=== PATIENT | male | born 1965 | race African-American/Black ===

== ENCOUNTER 2016-07-19 10:21 | Emergency (ER) | payer MEDICAID ==
[~2016-07-19] VITALS: Ht 190.5 cm; Wt 95.2 kg
[2016-07-19 10:28] VITALS: BP 144/89
[2016-07-19] MEDS ORDERED: OXYC5CAP4 PO (10:49)
== END 2016-07-19 11:43 | disposition home or self-care (01) ==
LOC: ED 10:48
DX: L02.415 Cutaneous abscess of right lower limb (principal)
CPT/HCPCS: 10060

== ENCOUNTER 2018-05-01 18:13 | Emergency (ER) | payer MEDICAID ==
[~2018-05-01] VITALS: Ht 190.5 cm; Wt 80.9 kg
[~2018-05-01 18:13] MED LIST: OXYC5CAP2 PO
[2018-05-01 18:19] VITALS: BP 176/95
== END 2018-05-01 19:25 | disposition home or self-care (01) ==
LOC: ED 19:19
DX: L03.011 Cellulitis of right finger (principal); L03.012 Cellulitis of left finger; B35.3 Tinea pedis; F17.210 Nicotine dependence, cigarettes, uncomplicated
CPT/HCPCS: 99283

== ENCOUNTER 2018-05-29 13:11 | Emergency (ER) | payer MEDICAID ==
[~2018-05-29] VITALS: Ht 190.5 cm; Wt 82.5 kg
[2018-05-29 13:46] VITALS: BP 166/103
--- NOTE | 2018-05-29 14:35 | NUR ---
Patient/Caregiver given discharge instructions and they have confirmed that they understand the instructions. Patient ambulatory with steady gait.
== END 2018-05-29 14:36 | disposition home or self-care (01) ==
LOC: ED 14:07
DX: L20.89 Other atopic dermatitis (principal); F17.200 Nicotine dependence, unspecified, uncomplicated
CPT/HCPCS: 99283

== ENCOUNTER 2018-07-30 10:27 | Inpatient (IN) | payer MEDICAID ==
[~2018-07-30] VITALS: Ht 190.5 cm; Wt 85.0 kg
--- NOTE | 2018-07-30 10:57 | NUR ---
BIB BY [facility] FOR COUGH/SOB CHILLS/FATIGUE/GENERALIZED ABD PAIN X 1 MONTH. [facility] REPORTS INITIAL HR 130- PIV PLACED AND GIVEN 1300ML ON ARRIVAL TREMULOUS/CHILLED/HR 125. TEMP 102.3. B/P 140/81 DENIES ILLICITS/ "ONE BEER YESTERDAY" MILD DIAPHORESIS, COURSE LUNG SOUNDS. PRODUCTIVE COUGH PLACED ON SOFTWARE INTEGRATOR- REMAINING 700ML OF EMS SALINE CURRENTLY INFUSING UPDATED ON POC PROVIDED WITH MULTIPLE BLANKETS/KRISTIAN HUGGER
--- NOTE | 2018-07-30 11:05 | NUR ---
PROVIDER TO BEDSIDE-PLAN TO ADMINISTER TYLENOL-START SEPSIS WORKUP
[2018-07-30] MEDS ORDERED: ACETAMINOPHEN 500 MG TABLET ONE (11:07)
--- NOTE | 2018-07-30 11:09 | NUR ---
MEDICATED FOR FEVER WITH 1GM OF APAP PER EMAR
[2018-07-30] MEDS ORDERED: ONDANSETRON 2MG/ML, 2ML ONE (11:21)
--- NOTE | 2018-07-30 11:29 | NUR ---
SCREEN MACHINE OPERATOR OBTAINED LABS INCLUDING LACTATE AND STERILE CULTURES FROM LEFT AC AND THEN RIGHT HAND. ADDITIONAL 18GA PLACED TO LEFT AC PATIENT THEN NAUSEATED-MEDICATED W/ 4MG ZOFRAN LITER BOLUS ADMINISTERED/AND ABX WELL PATIENT VOIDED 300ML-SAMPLE SENT VITALS REMAIN UNCHANGED
[2018-07-30] MEDS ORDERED: ACETAMINOPHEN 500 MG TABLET PO ONE (11:30)
[2018-07-30] MEDS ORDERED: CEFTRIAXONE PMX 1GM/50ML 50 ML IVPB ONE (11:30)
[2018-07-30] MEDS ORDERED: SODIUM CHLORIDE 0.9% 1,000ML IVBOLUS ONE (11:30)
--- NOTE | 2018-07-30 11:39 | NUR ---
PATIENT NOW 98.3-PROVIDED WITH BLANKETS REPORTS NAUSEA IMPROVED WITH VOIDING PATIENT REMINDED THAT HE HAS POLYURIA/RETENTION/BURNING W/ VOIDING-PROVIDER MADE AWAR & URINE SAMPLE IN LAB
[2018-07-30] MEDS ORDERED: CEFTRIAXONE PMX 1GM/50ML 50 ML ONE (11:43)
--- NOTE | 2018-07-30 11:49 | NUR ---
1 L NS COMPLETE/ROCEPHIN COMPLETE VITAL UNCHANGED ON SHOE SALESPERSON WILL CONTINUE TO CLOSELY MONITOR
[2018-07-30 11:50] LABS: CULTURE INDICATED? NO; MICROSCOPIC NOT IND
[2018-07-30 11:54] LABS: ALBUMIN 3.5 g/dL (3.4-5.0); ANION GAP 6 mmol/L (5-15); CALCIUM 8.9 mg/dL (8.5-10.1); CHLORIDE 105 mmol/L (98-107)
[2018-07-30 11:57] LABS: ALANINE AMINOTRANSFERASE 29 U/L (12-78); ALKALINE PHOSPHATASE 163 U/L (45-117); BILIRUBIN,TOTAL 0.8 mg/dL (0.2-1.0); CREATININE 1.02 mg/dL (0.7-1.3); TOTAL PROTEIN 7.6 g/dL (6.4-8.2)
[2018-07-30] MEDS ORDERED: ONDANSETRON 2MG/ML, 2ML IVPush ONE (12:00)
[2018-07-30 12:01] LABS: BASOPHILS # (AUTO) 0.02 x10^3/uL (0-0.1); BASOPHILS % (AUTO) 0 % (0-1); EOSINOPHILS # (AUTO) 0.06 x10^3/uL (0-0.4); EOSINOPHILS % (AUTO) 1 % (1-7); LYMPHOCYTES # (AUTO) 0.44 x10^3/uL (1-3.4); LYMPHOCYTES % (AUTO) 5 % (22-44); MD NO; MEAN CORPUSCULAR HEMOGLOBIN 28.5 pg (27.5-34.5); MEAN CORPUSCULAR HGB CONC 31.9 g/dL (33.2-36.2); MEAN CORPUSCULAR VOLUME 89.3 fL (81-97); MEAN PLATELET VOLUME 8.8 fL (7.4-10.4); MONOCYTES # (AUTO) 0.06 x10^3/uL (0.2-0.8); MONOCYTES % (AUTO) 1 % (2-9); NEUTROPHILS # (AUTO) 8.59 x10^3/uL (1.8-6.8); NEUTROPHILS % (AUTO) 94 % (42-75); PLATELET COUNT 191 x10^3/uL (130-400); RED BLOOD COUNT 4.82 x10^6/uL (4.38-5.82); RED CELL DISTRIBUTION WIDTH 13.6 % (9.4-14.8)
--- NOTE | 2018-07-30 12:45 | NUR ---
PATIENT RESTUING COMFORTABLY-NO COMPLAINTS STILL REQUIRING 3L NC VITALS UNCHANGED ON MONITOR UPDATED ON POC (PENDING ADMIT) CALL VALENTIN IN HAND
[2018-07-30] MEDS ORDERED: OMNIPAQUE 350 MG/ML, 100ML BOTTLE ONE (12:46)
--- NOTE | 2018-07-30 14:08 | NUR ---
PATIENT RESTING COMFORTABLY-NO COMPLAINTS OXYGEN WEANED TO 2L NC-NO DIFFICULTY VITALS UNCHANGED ON MONITOR CALL VALENTIN IN HAND/SIDE RAILS UP FAMILY AT BEDSIDE PROVIDED WITH MORE PO FLUIDS-TOLERATING W/OUT DIFFICULTY
--- NOTE | 2018-07-30 14:41 | NUR ---
PATIENT RESTING COMFORTABLY-NO COMPLAINTS OXYGEN WEANED TO 1L NC-NO DIFFICULTY HR DOWN TO 109 ON BREEDING MANAGER CALL VALENTIN IN HAND/SIDE RAILS UP FAMILY AT BEDSIDE PROVIDED WITH MORE PO FLUIDS-TOLERATING W/OUT DIFFICULTY
[2018-07-30] MEDS ORDERED: ACETAMINOPHEN 325 MG TABLET PO PRN (15:00)
[2018-07-30] MEDS ORDERED: hydrALAzine 20 MG/ML, 1ML IVPush PRN (15:00)
[2018-07-30] MEDS ORDERED: ONDANSETRON 2MG/ML, 2ML IVPush PRN (15:00)
[2018-07-30] MEDS ORDERED: DOCUSATE 100 MG CAPSULE PO PRN (15:00)
[2018-07-30] MEDS ORDERED: CYCLOBENZAPRINE 10 MG TABLET PO PRN (15:00)
[2018-07-30] MEDS: CIPROFLOXACIN/PMX 400MG/200ML 200 ML IV SCH (15:00)
[2018-07-30] MEDS ORDERED: NITROGLYCERIN 0.4 MG BOTTLE (25 TABS) SL PRN (15:00)
[2018-07-30] MEDS: ENOXAPARIN 40 MG/0.4 ML SQ SCH (15:00)
[2018-07-30] MEDS ORDERED: morphine SULFATE 10 MG/ML, 1ML IVPush PRN (15:00)
[2018-07-30] MEDS ORDERED: OXYcodone IR 5MG TABLET PO PRN (15:00)
--- NOTE | 2018-07-30 15:20 | NUR ---
REPORT TO RONEY GURROLA FOR [facility] RONEY MADE AWARE THAT HOSPITALIST SWITCHED ADMIT FOR SURGICAL TO TELE. DR. DEMPSEY MADE AWARE THAT HR NOW 86-HOWEVER DR. DEMPSEY PREFERS HE BEEN ADMITTED TO TELE BASED ON PRIOR TACHYCARDIA
[2018-07-30] MEDS ORDERED: TETR-16 PO (16:02)
[2018-07-30 16:25] LABS: C-REACTIVE PROTEIN, QUANT 0.53 mg/dL (0.02-0.49)
[2018-07-30 16:29] LABS: PSA SCREEN 9.44 ng/mL (0.00-4.00)
[2018-07-30 17:42] LABS: HCT (SEDRATE) 43.1 % (39.2-51.8)
[2018-07-30] MEDS: D5%-LACTATED RINGERS 1,000 ML IV SCH (19:02)
[2018-07-30 19:53] VITALS: BP 117/66
[2018-07-30] MEDS: TAMSULOSIN 0.4 MG CAP.ER.24H PO SCH (22:05)
[2018-07-30] MEDS: METRONIDAZOLE PMX 500MG/100ML 100 ML IV SCH (22:06)
[2018-07-31] MEDS: D5%-LACTATED RINGERS 1,000 ML IV SCH ×4 (01:14→23:00)
[2018-07-31 02:20] VITALS: BP 122/67
[2018-07-31] MEDS: CIPROFLOXACIN/PMX 400MG/200ML 200 ML IV SCH ×2 (03:00→16:53)
[2018-07-31 04:24] LABS: AMPHETAMINE SCREEN, URINE Positive (Negative); BARBITURATE SCREEN, URINE Negative (Negative); BENZODIAZEPINE SCREEN, URINE Negative (Negative); CANNABINOID SCREEN, URINE Negative (Negative); COCAINE SCREEN, URINE Negative (Negative); METHADONE SCREEN, URINE Negative (Negative); OPIATE SCREEN, URINE Negative (Negative)
[2018-07-31] MEDS: METRONIDAZOLE PMX 500MG/100ML 100 ML IV SCH ×3 (05:41→22:56)
[2018-07-31 06:53] LABS: MEAN CORPUSCULAR HEMOGLOBIN 28.8 pg (27.5-34.5); MEAN CORPUSCULAR HGB CONC 32.4 g/dL (33.2-36.2); MEAN PLATELET VOLUME 8.8 fL (7.4-10.4); PLATELET COUNT 164 x10^3/uL (130-400); RED BLOOD COUNT 3.97 x10^6/uL (4.38-5.82); RED CELL DISTRIBUTION WIDTH 13.6 % (9.4-14.8)
[2018-07-31 07:06] LABS: ANION GAP 7 mmol/L (5-15); CALCIUM 8.1 mg/dL (8.5-10.1); CHLORIDE 106 mmol/L (98-107)
[2018-07-31 07:08] LABS: CREATININE 0.82 mg/dL (0.7-1.3)
[2018-07-31 07:13] LABS: BASOPHILS # (AUTO) 0.03 x10^3/uL (0-0.1); BASOPHILS % (AUTO) 1 % (0-1); EOSINOPHILS % (AUTO) 6 % (1-7); LYMPHOCYTES # (AUTO) 1.48 x10^3/uL (1-3.4); LYMPHOCYTES % (AUTO) 28 % (22-44); MD SCAN; MONOCYTES # (AUTO) 0.64 x10^3/uL (0.2-0.8); MONOCYTES % (AUTO) 12 % (2-9); NEUTROPHILS # (AUTO) 2.87 x10^3/uL (1.8-6.8); NEUTROPHILS % (AUTO) 54 % (42-75)
[2018-07-31 08:00] VITALS: BP 119/75
[2018-07-31 13:55] VITALS: BP 119/68
[2018-07-31] MEDS: ENOXAPARIN 40 MG/0.4 ML SQ SCH (16:54)
[2018-07-31 18:56] VITALS: BP 134/69
[2018-07-31] MEDS: TAMSULOSIN 0.4 MG CAP.ER.24H PO SCH (21:21)
[2018-07-31 21:30] LABS: OCCULT BLOOD NEGATIVE (NEGATIVE)
[2018-07-31 22:40] LABS: STOOL FOR LEUKOCYTES NONE SEEN (NEGATIVE)
[2018-08-01 01:56] VITALS: BP 153/80
[2018-08-01] MEDS: CIPROFLOXACIN/PMX 400MG/200ML 200 ML IV SCH ×2 (03:17→15:24)
[2018-08-01 05:15] LABS: BASOPHILS # (AUTO) 0.01 x10^3/uL (0-0.1); BASOPHILS % (AUTO) 0 % (0-1); EOSINOPHILS # (AUTO) 0.22 x10^3/uL (0-0.4); EOSINOPHILS % (AUTO) 5 % (1-7); LYMPHOCYTES # (AUTO) 1.93 x10^3/uL (1-3.4); LYMPHOCYTES % (AUTO) 40 % (22-44); MD NO; MEAN CORPUSCULAR HEMOGLOBIN 28.9 pg (27.5-34.5); MEAN CORPUSCULAR HGB CONC 32.6 g/dL (33.2-36.2); MEAN CORPUSCULAR VOLUME 88.9 fL (81-97); MEAN PLATELET VOLUME 9.4 fL (7.4-10.4); MONOCYTES # (AUTO) 0.74 x10^3/uL (0.2-0.8); MONOCYTES % (AUTO) 15 % (2-9); NEUTROPHILS # (AUTO) 1.94 x10^3/uL (1.8-6.8); NEUTROPHILS % (AUTO) 40 % (42-75); PLATELET COUNT 182 x10^3/uL (130-400); RED CELL DISTRIBUTION WIDTH 13.2 % (9.4-14.8)
[2018-08-01 05:19] LABS: CHLORIDE 108 mmol/L (98-107)
[2018-08-01 05:29] LABS: ANION GAP 7 mmol/L (5-15); CALCIUM 8.7 mg/dL (8.5-10.1); CREATININE 0.62 mg/dL (0.7-1.3)
[2018-08-01] MEDS: D5%-LACTATED RINGERS 1,000 ML IV SCH (05:37)
[2018-08-01] MEDS: METRONIDAZOLE PMX 500MG/100ML 100 ML IV SCH ×3 (05:37→21:44)
[2018-08-01 08:02] VITALS: BP 130/78
[2018-08-01] MEDS: ENOXAPARIN 40 MG/0.4 ML SQ SCH (15:24)
[2018-08-01 16:11] VITALS: BP 112/74
[2018-08-01 18:56] VITALS: BP 146/82
[2018-08-01] MEDS: TAMSULOSIN 0.4 MG CAP.ER.24H PO SCH (21:37)
[2018-08-02 00:55] VITALS: BP 142/84
[2018-08-02] MEDS: CIPROFLOXACIN/PMX 400MG/200ML 200 ML IV SCH (02:32)
[2018-08-02] MEDS: METRONIDAZOLE PMX 500MG/100ML 100 ML IV SCH (06:30)
[2018-08-02 07:05] VITALS: BP 135/84
[2018-08-02] MEDS ORDERED: TAMS-11 PO (12:06)
[2018-08-02] MEDS ORDERED: ACET325T14 PO (12:06)
== END 2018-08-02 13:50 | disposition home or self-care (01) | DRG 872 ==
LOC: ED 12:02 → EDIP 15:00 → 4WST 16:45
PROVIDERS: ADMIT Internal Medicine; ATTEND Internal Medicine
DX: A41.9 Sepsis, unspecified organism (principal); K50.90 Crohn's disease, unspecified, without complications; E83.39 Other disorders of phosphorus metabolism; E86.0 Dehydration; F15.90 Other stimulant use, unspecified, uncomplicated; Z96.642 Presence of left artificial hip joint; F17.210 Nicotine dependence, cigarettes, uncomplicated; N40.0 Benign prostatic hyperplasia without lower urinary tract symptoms; Z80.42 Family history of malignant neoplasm of prostate; Z83.3 Family history of diabetes mellitus
CPT/HCPCS: 36415; 82438; 84302; 84999; 87046; 99285; J7121; 71045; 74177; 80048; 80053; 80307; 81003; 82272; 83605; 83735; 84100; 85025; 85651; 86140; 87040; 89055; 93005; 96374; 96375; G0103; G0378; J0696; J0744; J1650; J2405; Q9967; J7030

== ENCOUNTER 2019-06-23 22:50 | Emergency (ER) | payer MEDICAID ==
[~2019-06-23] VITALS: Ht 190.5 cm; Wt 82.2 kg
[~2019-06-23 22:50] MED LIST changes: +ACET325T14 PO; +TAMS-11 PO; +TETR-16 PO
[2019-06-23 22:54] VITALS: BP 194/114
[2019-06-23 23:22] LABS: MICROSCOPIC NOT IND
[2019-06-23 23:23] LABS: CULTURE INDICATED? NO
--- NOTE | 2019-06-23 23:29 | NUR ---
RADIOLOGY TO BEDSIDE. PT REMAINS STABLE AND NAD AT THIS TIME. PLEASANT TEXMAN.
== END 2019-06-24 00:28 | disposition home or self-care (01) ==
LOC: ED 23:10
DX: R05 Cough (principal); R30.0 Dysuria; F15.10 Other stimulant abuse, uncomplicated; R00.0 Tachycardia, unspecified; F17.210 Nicotine dependence, cigarettes, uncomplicated; Z72.9 Problem related to lifestyle, unspecified
CPT/HCPCS: 71045; 81003; 99284; 99406

== ENCOUNTER 2020-03-10 23:44 | Emergency (ER) | payer MEDICAID ==
[~2020-03-10] VITALS: Ht 190.5 cm; Wt 86.3 kg
[2020-03-11 00:50] LABS: BASOPHILS % (AUTO) 1 % (0-1); EOSINOPHILS % (AUTO) 1 % (1-7); LYMPHOCYTES % (AUTO) 25 % (22-44); MEAN CORPUSCULAR HEMOGLOBIN 28.9 pg (27.5-34.5); MEAN CORPUSCULAR HGB CONC 32.6 g/dL (33.2-36.2); MEAN PLATELET VOLUME 8.1 fL (7.4-10.4); MONOCYTES % (AUTO) 5 % (2-9); NEUTROPHILS % (AUTO) 68 % (42-75); PLATELET COUNT 313 x10^3/uL (130-400); RED BLOOD COUNT 4.39 x10^6/uL (4.38-5.82); RED CELL DISTRIBUTION WIDTH 14.6 % (9.4-14.8)
[2020-03-11 00:52] LABS: ALANINE AMINOTRANSFERASE 19 U/L (12-78); ALBUMIN 3.3 g/dL (3.4-5.0); ANION GAP 5 mmol/L (5-15); CALCIUM 8.9 mg/dL (8.5-10.1); CHLORIDE 104 mmol/L (98-107); CREATININE 1.03 mg/dL (0.7-1.3)
[2020-03-11 00:57] LABS: ALKALINE PHOSPHATASE 125 U/L (45-117); BILIRUBIN,TOTAL 0.4 mg/dL (0.2-1.0); TOTAL PROTEIN 8.3 g/dL (6.4-8.2); TROPONIN I < 0.015 ng/mL (0.000-0.045)
[2020-03-11 00:58] LABS: MD NO
--- NOTE | 2020-03-11 02:00 | NUR ---
PATIENT RESTING QUIETLY ON STRETCHER, REQUESTED URINE FROM PT. STATES THAT HE IS UNABLE TO GO AT THIS TIME. CALL VALENTIN WITHIN REACH, VSSFATMATA, WILL CONTINUE TO MONITOR.
--- NOTE | 2020-03-11 03:51 | NUR ---
PATIENT AWARE THAT HE NEEDS TO PROVIDE URINE, WARNED OF POSSIBILITY OF STRAIGHT CATH USE FOR URINE SAMPLE
[2020-03-11 04:42] VITALS: BP 130/79
== END 2020-03-11 05:09 | disposition home or self-care (01) ==
LOC: ED 03-11 03:42
DX: J06.9 Acute upper respiratory infection, unspecified (principal); Z20.822 Contact with and (suspected) exposure to COVID-19; H92.01 Otalgia, right ear; R00.0 Tachycardia, unspecified; I51.7 Cardiomegaly; R07.9 Chest pain, unspecified; R39.198 Other difficulties with micturition; F17.200 Nicotine dependence, unspecified, uncomplicated
CPT/HCPCS: 36415; 71045; 80053; 84484; 85025; 87635; 93005; 99285

== ENCOUNTER 2020-07-09 11:10 | Emergency (ER) | payer MEDICAID ==
[~2020-07-09] VITALS: Ht 190.5 cm; Wt 104.5 kg
[2020-07-09 11:17] VITALS: BP 120/72
--- NOTE | 2020-07-09 11:23 | NUR ---
Pt BIB EMS from [facility] for having low O2 sats and a CINTRON. Officer reports that O2 sats were below 90. Here O2 was 98% RA. Officer has been unable to clarify if this pt is being arrested. Pt connected to BP, O2, and cardiac monitors, call light in reach, all VSS, NADN, pt asking for water but told that he has to wait until the DR has seen him. Given warm blankets and positioned for comfort, no other requests at this time.
[2020-07-09] MEDS ORDERED: ACETAMINOPHEN 500 MG TABLET ONE (11:48)
[2020-07-09] MEDS ORDERED: ACETAMINOPHEN 500 MG TABLET PO ONE (12:00)
[2020-07-09] MEDS ORDERED: ACETAMINOPHEN 325 MG TABLET PO ONE (12:00)
== END 2020-07-09 12:12 | disposition home or self-care (01) ==
LOC: ED 12:00
DX: F15.129 Other stimulant abuse with intoxication, unspecified (principal)
CPT/HCPCS: 71045; 99283